=== PATIENT | male | born 1955 | race Caucasian/White ===

== ENCOUNTER 2023-10-04 05:04 | Observation (INO) ==
--- NOTE | 2023-09-02 14:27 | PAT Medication Instructions ---
Medication Instructions Date of Service September 02, 2023 Home Medications Multivitamins/Minerals (Mvi With Minerals) 1 tab PO DAILY acetaminophen 500 mg tablet 500 mg PO QID PRN Pain aspirin 81 mg capsule 81 mg PO Q2D atorvastatin 40 mg tablet 40 mg PO QAM ezetimibe 10 mg tablet 10 mg PO QAM fluticasone propionate 50 mcg/actuation nasal spray,suspension 1 spray intranasal DAILY losartan 25 mg tablet 25 mg PO HS ASK your prescriber and surgeon aspirin 81 mg capsule 81 mg PO Q2D DO NOT take the morning of surgery Multivitamins/Minerals (Mvi With Minerals) 1 tab PO DAILY Take morning of surgery With a small sip of water, OTHERWISE NOTHING TO EAT OR DRINK AFTER MIDNIGHT: acetaminophen 500 mg tablet 500 mg PO QID PRN Pain (if needed) atorvastatin 40 mg tablet 40 mg PO QAM ezetimibe 10 mg tablet 10 mg PO QAM fluticasone propionate 50 mcg/actuation nasal spray,suspension 1 spray intr anasal DAILY Take evening before surgery acetaminophen 500 mg tablet 500 mg PO QID PRN Pain (if needed) losartan 25 mg tablet 25 mg PO HS Other Notes If you have any questions please call us at [phone] or [phone] or [phone] or [phone]
--- NOTE | 2023-09-09 08:44 | Anesthesiology Consultation ---
Date of Service September 09, 2023 Assessment & Plan (1) Encounter for pre-operative examination: - Infectious disease screening: Per assessment on 09/09/23: No known recent infectious disease contacts or current infectious disease symptoms. - Outpatient joint assessment: Pt currently scheduled for inpatient pathway. If surgeon requests review for outpatient joint pathway, patient is an acceptable candidate for outpatient joint program from anesthesia standpoint pending surgeon's office assessment that patient is motivated, has good support and completes [facility] Program preop requirements. - Cardiology visit (08/30/23): "Has chronic hip pain. Scheduled for left hip total replacement on 10/04/23 at [facility] with Dr. Sanders. No prior complications with anesthesia.. cholesterol well controlled- continue atorvastatin 40 mg daily, zetia 10 mg daily.. blood pressure mildly elevated on exam today, continue to monitor- continue losartan 25 mg daily.. borderline enlarged ascending aorta and aortic root on echo from 04/2022.. due to upcoming surgery, will repeat echo prior to surgery to assess size of ascending aorta.. Follow up 1 year or sooner if symptoms worsen/fail to improve." - Patient acceptable risk for surgery pending cardiology-ordered preop Echo (09/17, [facility]). Chart Review Chart Review: Patient seen in Pre Admission Testing Teaching & Discussion Pre-Anesthesia Teaching/Discussion Notes: Instructed NPO after midnight before surgery,except medications with 15 cc of water. Medication instructions provided according to the PAT guidelines. History Surgery Operation Date: 10/04/23 09:00 Proposed Procedures p Left Anterior Total Hip Arthroplasty - Helio Sanders DO Height/Weight Height: 5 ft 9 in Weight: 101.3 kg Allergies Allergy/AdvReac Type Severity Reaction Status Date / Time diphenhydramine Allergy Unknown throat Verified 08/23/23 13:20 swelling Medications Home Medications Medication Instructions Recorded Confirmed Last Taken Multivitamins/Minerals (Mvi With 1 tab PO DAILY #0 tabs 06/14/14 08/23/23 Unknown Minerals) acetaminophen 500 mg tablet 500 mg PO QID PRN Pain 08/23/23 08/23/23 Unknown aspirin 81 mg capsule 81 mg PO Q2D 08/23/23 08/23/23 Unknown atorvastatin 40 mg tablet 40 mg PO DAILY 08/23/23 09/09/23 Unknown ezetimibe 10 mg tablet 10 mg PO DAILY 08/23/23 09/09/23 Unknown fluticasone propionate 50 1 spray intranasal DAILY 08/23/23 08/23/23 Unknown mcg/actuation nasal spray,suspension losartan 25 mg tablet 25 mg PO HS 08/23/23 08/23/23 Unknown Past Medical History Medical History Ascending aorta enlargement [facility] cardio 08/30/23, "borderline enlarged ascending aorta and aortic root on echo from 04/2022.. due to upcoming surgery, will repeat echo prior to surgery to assess size of ascending aorta" > Echo scheduled 09/17 ([facility]) CKD (chronic kidney disease) "CKD with single kidney s/p kidney donation" per [facility] records Degenerative joint disease of left hip H/O kidney donation 2009 HTN (hypertension) Hyperlipidemia Exercise / Class Metabolic Activity II 4-5 Yardwork/Stairs/Walk up hill Past Surgical History Surgical History History of lumbar surgery L5 History of nephrectomy, unilateral (03/2009) kidney donor (left) Hx of colonoscopy Past Anesthesia History No Hx of Anesthesia Complications and No Family Hx of Anesthesia Complications History of PONV No Hx of PONV and No Hx of Motion Sickness Social History Smoking Status: Never smoker Do You Dip or Chew Tobacco: No Hx Alcohol Use: No Hx Substance Use: No substance use type: does not use Review of Systems Patient denies chest pain, shortness of breath, dyspnea on exertion, fever, chills, cough, wheezing, palpitations. Physical Exam Vital Signs BP 147/82 P 61 SP02 96%RA RESP 16 Physical Full cervical extension range of motion. Full TMJ range of motion. TMD > 3.5 finger breaths Mallampati Score 3 Dentition: upper/lower partials Lungs: clear throughout to auscultation Cardiac: regular rate and rhythm, no murmurs noted Spine: normal Carotid arteries: negative bruit Extremities: no LE edema Lab Results Anesthesia Preop Results Results Anesthesia Widget: WBC 8.63 K/ul (4.8-10.8) 09/09/23 Hgb 15.9 g/dl (14.0-18.0) 09/09/23 Hct 47.6 % (42.0-52.0) 09/09/23 Plt 273 K/uL (130-400) 09/09/23 Na 140 mmol/L (136-145) 09/09/23 K 4.7 mmol/L (3.5-5.1) 09/09/23 Cl 106 mmol/L (98-107) 09/09/23 CO2 29 mmol/L (21-32) 09/09/23 BUN 21 mg/dl (6-23) 09/09/23 Creat 1.27 mg/dl (0.6-1.4) 09/09/23 Glucose Level 101 mg/dl (70-99(Fasting)) H 09/09/23 PT 10.5 Seconds (9.0-12.0) 09/09/23 PTT 25 Seconds (21-31) 09/09/23 INR 1.0 (0.9-1.1) 09/09/23 Blood Type A Positive 09/09/23 Antibody Screen NEGATIVE 09/09/23 Testing Electrocardiogram Date: 08/30/23 Findings: + NSR @ (79) Chest X-Ray Date: 09/09/23 FINDINGS: Lung volumes are normal. Lungs are clear. There is no pneumothorax or pleural effusion. Cardiac size is normal. Mediastinal contours are normal. There is no evidence for pulmonary edema. IMPRESSION: No acute cardiopulmonary findings.
--- NOTE | 2023-10-03 12:28 | History & Physical Report ---
Date of Service October 03, 2023 Assessment & Plan (1) Degenerative joint disease of left hip: We will proceed with a left anterior total of arthroplasty. Postoperatively he will be started on aspirin for DVT prophylaxis and kept overnight in the hospital for postop medical management. He does not plan to do physical therapy upon discharge. History of Present Illness Chief Complaint: Osteoarthritis of the left hip. Primary Care Provider: Edmund Theodore MD Edmund is a pleasant 67-year-old male who has been dealing with chronic increasing left hip and groin pain. 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 He does a lot of powerlifting. Previous x-rays have shown advanced arthritis of his hip. He has been trying to treat this conservatively. Unfortunately, he is still really struggling with the hip. After failing conservative treatment, he has elected to proceed with a left anterior total of arthroplasty. Allergies Allergy/AdvReac Type Severity Reaction Status Date / Time diphenhydramine Allergy Unknown throat Verified 08/23/23 13:20 swelling Home Medications Medication Instructions Recorded Confirmed Type Multivitamins/Minerals (Mvi With 1 tab PO DAILY #0 tabs 06/14/14 08/23/23 History Minerals) acetaminophen 500 mg tablet 500 mg PO QID PRN Pain 08/23/23 08/23/23 History aspirin 81 mg capsule 81 mg PO Q2D 08/23/23 08/23/23 History atorvastatin 40 mg tablet 40 mg PO DAILY 08/23/23 09/09/23 History ezetimibe 10 mg tablet 10 mg PO DAILY 08/23/23 09/09/23 History fluticasone propionate 50 1 spray intranasal DAILY 08/23/23 08/23/23 History mcg/actuation nasal spray,suspension losartan 25 mg tablet 25 mg PO HS 08/23/23 08/23/23 History Past Med/Surg History Problem List Encounter for pre-operative examination Medical History Ascending aorta enlargement [facility] cardio 08/30/23, "borderline enlarged ascending aorta and aortic root on echo from 04/2022.. due to upcoming surgery, will repeat echo prior to surgery to assess size of ascending aorta" > Echo scheduled 09/17 ([facility]) CKD (chronic kidney disease) "CKD with single kidney s/p kidney donation" per [facility] records H/O kidney donation 2009 Degenerative joint disease of left hip Hyperlipidemia HTN (hypertension) Surgical History History of nephrectomy, unilateral (03/2009) kidney donor (left) Hx of colonoscopy History of lumbar surgery L5 "artificial disc" Social History Smoking Status: Never smoker Second Hand Exposure: No; Do You Dip or Chew Tobacco: No; Tobacco Cessation Education Requested by Patient: No Hx Alcohol Use: No Hx Substance Use: No Preferred Language: Maori Communication Ability: Effective Concrete Paving Supervisor Required: No Beliefs That Will Affect Care: None Current Living Situation: Alone Other Information That Helps Us Care for You: No Feels Safe at Home: Yes Safety Concerns: Feels Safe At This Time Assistive Devices: Denture - Upper, Denture - Lower and Glasses Review of Systems All systems reviewed & are unremarkable except as noted in HPI & below. Physical Exam Physical examination left hip shows decreased range of motion with pain with forced internal and external rotation.. Constitutional WD/WN, vitals as above Eyes PERRL, conjunctivae normal, anicteric sclerae ENMT external ear and nose normal, oropharynx normal Neck trachea midline, no thyromegaly Respiratory normal respiratory effort Cardiovascular RRR, no murmur, no edema Gastrointestinal (Abdomen) normal bowel sounds, soft, nontender, no hepatosplenomegaly Psychiatric A+Ox3, euthymic affect Results & Data Results & Data Laboratory Results . Diagnostic Findings X-rays of the left hip and pelvis show advanced osteoarthritis with joint space narrowing, osteophyte formation, and [id number] articulation. PG Care Time/CCT Total # of Minutes Spent Total Time Spent with Patient: Total time spent is greater than 50% in coordination of care (as documented) at patient's floor/unit and/or counseling patient: Coding Level of Care Code None Diagnoses Degenerative joint disease of left hip M16.12
--- OUTSIDE RECORDS SUMMARY | 2023-10-04 05:10 | External Medical Summary | Summary of Care ---
Author Name Unknown Organization [facility] Address [address] [facility] [place] [address] Phone [phone] Care Team Providers Care Monument Erector Name Role Phone Edmund Theodore MD Primary Care Provider + Reason for Visit * Reason Onset Date Comments Test Results 09/23/2023 Encounter Details Date Type Department Care Team (Late st Contact Info) Description 09/23/2023 Telephone Elisabeth Zepeda [address] [place] [address] Nuria Tolliver PA-C [address] [facility] [place] [address] Test Results Allergies Active Allergy Reactions Criticality Noted Date Comments Diphenhydramine Hcl Edema airway High 08/01/2012 documented as of this encounter (statuses as of 09/23/2023) Medications Medication Sig Dispensed Refills Start Date End Date Status MULTI-VITAMIN DAILY PO TABS 1 tablet daily Active Fluticasone Propionate 50 MCG/ACT Nasal Suspension (Flonase) Administer 2 Sprays into nostril in the morning. Active Acetaminophen 500 MG Oral Tablet (Tylenol) Take 2 Tablets by mouth every 6 hours as needed (pain or fever). Active Aspirin 81 MG Oral Tablet Delayed Release Take 1 Tablet by mouth daily as needed (pain). Active Ezetimibe 10 MG Oral Tablet (Zetia)Indications:Mi xed hyperlipidemia TAKE ONE TABLET BY MOUTH EVERY MORNING 30 Tablet 11 03/25/2023 Active Losartan Potassium 25 MG Oral Tablet (Cozaar)Indications:H TN, goal below 140/90 TAKE 1 TABLET BY MOUTH EVERY DAY 90 Tablet 3 05/20/2023 Active Atorvastatin Calcium 40 MG Oral Tablet (Lipitor)Indications: Hyperlipidemia TAKE 1 TABLET BY MOUTH EVERY DAY 90 Tablet 3 05/20/2023 Active documented as of this encounter (statuses as of 09/23/2023) Active Problems Problem Noted Date Diagnosed Date Chronic kidney disease, stage 3a 01/02/2021 Overview: Per CKD protocol HTN, goal below 140/90 11/08/2020 Prediabetes 09/14/2020 Lipoma of torso 05/13/2017 History of nonmelanoma skin 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/06/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: pigmented 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 back 11/11 History of tobacco use 09/12/2012 Mixed hyperlipidemia 03/13/2010 documented as of this encounter (statuses as of 09/23/2023) Resolved Problems Problem Noted Date Diagnosed Date Resolved Date Tobacco use disorder 06/12/2010 013 Kidney disease, chronic, sta ge III (GFR 30-59 ml/min) 03/28/2010 01/05/2021 Overview: Requests to see [facility] documented as of this encounter (statuses as of 09/23/2023) Immunizations Name Administration Dates Next Due Covid-19 Ad26, Single Dose (Araseli/J&J) 021 TDAP (age 10 and older)(Boostrix) 05/13/2017 TDAP, Age 7 and older, IM (Adacel) 10/10/2004 Zoster Vaccine Recombinant (Shingrix) 11/08/2020 ,09/13/2020 11/14/2020 documented as of this encounter Social History Tobacco Use Types Packs/Day Years Used Date Smoking Tobacco: Never Smokeless Tobacco: Former Snuff, Chew Quit: 06/25/2010 Alcohol Use Standard Drinks/Week Comments No 0 (1 standard drink = 0.6 oz pur e alcohol) PHQ-2 Answer Date Recorded PHQ Adult Total Score 0 03/26/2022 Hunger Vital Sign Answer Date Recorded Within the past 12 months, y ou worried that your food would run out before you got the money to buy more. Never true 03/26/19 23 Within the past 12 months, t he food you bought just didn't last and you didn't have money to get more. Never true 03/26/2022 Sex and Gender Information Value Date Recorded Sex Assigned at Male 05/14/2018 8:04 AM EDT Gender Identity Male 05/14/2018 8:04 AM EDT Sexual Orientation Straight 05/14/2018 8: 04 AM EDT Job Start Date Occupation Industry Not on file Not on file Not on file documented as of this encounter Miscellaneous Notes * Telephone Encounter - Veronica Steiner CMA - 09/23/2023 2:18 PM EDT Letter mailed. * Telephone Encounter - Veronica Steiner CMA - 09/23/2023 2:18 PM EDT ----- Message from Nuria Tolliver sent at 09/20/2023 2:54 PM EDT ----- No significant change compared to previous echo. Keep appt as scheduled. documented in this encounter Plan of Treatment Upcoming Encounters Date Type Department Care Team (Late st Contact Info) Description 10/30/2023 10:00 AM EDT Office Visit General Internal Medicine [facility] [address] [facility] [address] [place] [address] Edmund Theodore MD [address] [facility] [place] [address] 09/04/2024 8:30 AM EDT Office Visit Cardiology, [facility] [address] [place] [address] Nuria Tolliver PA-C [address] [place] [phone] Scheduled Procedures Name Priority Associated Diagnoses Date/Ti me COLONOSCOPY FLEXIBLE PROXIMA L DIAGNOSTIC Recall Special screening for malignant neoplasms, colon Health Maintenance Due Date Last Done Comments Cologuard 2001 Fecal Occult Blood Test 2001 Sigmoidoscopy 2001 Pneumococcal Vaccine: 65+ Years (1 of 1 - PCV) 2021 COVID-19 Vaccine (2 - 2022- season) 2022 05/08/2020 Albumin/Creatinine Ratio 03/26/2023 023, 09/13/2020, 05/14/2018, Additional history exists Depression Screening 03/26/2023 03/26/2022 GFR 10/22/2023 04/23/2023, 08/0 04/2022, 03/26/2022, Additional history exists Influenza Vaccine (FLU shot) (#1) 2023 CKD HGB USE SMARTSET 65865 04/23/202404/23, 04/23/2023, 09/27/2022, Additional history exists CKD PHOS USE SMARTSET 01413 04/23/2024/2 08/2023, 03/26/2022, 09/13/2020, Additional history exists HbA1c 04/23/2024 04/23/2023, 08/0 04/2022, 03/26/2022, Additional history exists DTaP,Tdap,and Td Vaccines (3 - Td or Tdap) 05/14/2027 05/13/2017, 10/10/2004 Lipid Panel 04/23/2028 04/23/2023, 02/27, 08/09/2021, Additional history exists Colonoscopy 09/05/2028 09/05/2018, 09/05/2018 Colorectal Cancer Screening 09/05/2028 Zoster Vaccines Completed 11/08/2020, 09/13/2020 HPV (Gardasil) Vaccine Aged Out No lo nger eligible based on patient's age to complete this topic Hepatitis B Vaccine Aged Out No longe r eligible based on patient's age to complete this topic MENINGOCOCCAL (MENACTRA/MENVEO) Aged Out No longer eligible based on patient's age to complete this topic documented as of this encounter Medical Devices Not on filedocumented as of this encounter Care Teams Monument Erector Relationship Specialty Start Date End Date Edmund Theodore MD [address] [place] [address] PCP - General Internal Medicine 03/13/10 documented as of this encounter
[2023-10-04] MEDS: LR 500ML BOLUS, THEN 15ML/HR IV SCH (05:34)
[2023-10-04] MEDS: dexAMETHasone**PF** 10 MG/ML VIAL IV SCH (05:35)
[2023-10-04] MEDS: ACETAMINOPHEN 500 MG TAB PO SCH ×2 (05:48→14:07)
[2023-10-04] MEDS: FAMOTIDINE 20 MG TAB PO SCH (05:48)
[2023-10-04] MEDS: GABAPENTIN 300 MG CAP PO SCH (05:48)
--- NOTE | 2023-10-04 06:17 | History & Physical Bridge Note ---
Date of Service October 04, 2023 History & Physical Bridge Note I have examined the patient, reviewed the History & Physical and in the interval since the performance of the History & Physical I have noted the following changes of clinical significance: no changes noted
[2023-10-04] MEDS ORDERED: BUPIVACAINE 0.5 % 5 MG/1 ML PF 10ML VIAL ONE (06:18)
[2023-10-04] MEDS ORDERED: ePHEDrine sulfate 50 MG/ML AMP IV PRN (06:35)
[2023-10-04] MEDS ORDERED: ONDANSETRON INJ 2 MG/ML 2 ML VIAL IV PRN ×2 (06:35→10:24)
[2023-10-04] MEDS ORDERED: fentaNYL citrate PF 100 MCG/2 ML VIAL IV PRN (06:35)
[2023-10-04] MEDS ORDERED: ATROPINE SULFATE 0.1 MG/ML 10ML SYR IV PRN (06:35)
[2023-10-04] MEDS ORDERED: fentaNYL citrate PF 100 MCG/2 ML VIAL ONE ×2 (06:42→07:36)
[2023-10-04] MEDS ORDERED: MIDAZOLAM HCL 1 MG/ML 2ML VIAL ONE (06:42)
[2023-10-04] MEDS: TRANEXAMIC ACID 1,000 MG **IV Pre-op IV SCH (06:46)
[2023-10-04] MEDS: ceFAZolin 2000MG 2,000 MG/15 ML SYR IV SCH ×2 (06:58→14:52)
[2023-10-04] MEDS ORDERED: HYDROmorphone INJ 2 MG/ML SYR/VIAL ONE (07:14)
[2023-10-04] MEDS ORDERED: ONDANSETRON INJ 2 MG/ML 2 ML VIAL ONE (07:24)
[2023-10-04] MEDS: ORTHO JOINT ANESTHETIC ONE (07:24)
[2023-10-04] MEDS ORDERED: PROPOFOL IV EMULSION 10 MG/ML 20 ML VIAL IV ONE (07:24)
[2023-10-04] MEDS: ROPIV 0.5% 246mg, Ketorolac 30mg, EPINEPHrine 0.5mg in NSS INFIL SCH (07:40)
[2023-10-04] MEDS ORDERED: ePHEDrine sulfate 50 MG/ML AMP ONE (07:46)
--- NOTE | 2023-10-04 08:12 | Operative Report ---
PG Post Operative Report Pre & Post Diagnosis Operation Date: 10/04/23 07:00 Pre-Op Diagnosis: Left Hip Degenerative Joint Disease Post-Op Diagnosis: Left Hip Degenerative Joint Disease I identified the patient and participated in the time-out.: Yes Procedure Operation Date: 10/04/23 07:00 Actual Procedures p Left Anterior Total Hip Arthroplasty(Left) - Helio Sanders DO Surgeon Helio Sanders DO Structural Manager Helio Steen PA-C Estimated Blood Loss 350 Findings Consistent with Post-Op Diagnosis Specimens Left femoral head Description of Procedure Implants used I used a ZimmerBiomet total hip arthroplasty system with a size 6 standard offset Avenir Complete stem, a 52 mm G7 cup with a 25mm screw, an E1 polyethylen e liner, a 36 mm ceramic head with a +3.5 neck. Vikram arrived at the hospital for the above procedure. He was seen in the preoperative holding area and the operative extremity was identified and signed. He was given a spinal anesthetic, a preoperative antibiotic, and TXA. He was then taken back to the operating room and laid on the table in the supine position. He was given basic sedation. The operative leg was secured to a Puristst leg positioner. The hip was then prepped and draped in sterile fashion. A timeout was done and the patient and the operative extremity was properly identified. An anterior approach was used. Dissection was taken down through the fascia and the tensor muscle belly was retracted laterally and the rectus was retracted medially. The circumflex vessels were identified and ligated. The capsule was then incised and tagged for later repair. The femoral neck was then cut and the femoral head was removed. The acetabulum was exposed. Time was spent doing a complete circumferential labral release. Sequential reaming of the acetabulum up to a size 51 reamer was done. Final reamings were done under fluoroscopy to ensure appropriate version. A Biomet 52 mm G7 cup was then impacted into place. A single 25 mm screw was placed. The E1 polyethylene liner was then snapped into place. Surrounding soft tissues were then injected with 100 cc of an orthopedic pain control cocktail. The proximal femur was then exposed. Sequential broaching up to a size 6 broach was done. Off that broach a size 36 head with a 3.5 neck was trialed. The hip was reduced and fluoroscopic images showed anatomic alignment of the implants in acceptable length. The broach was removed. The final size 6 standard offset Avenir Complete stem was then impacted into place. A ceramic 36 mm head with a +3.5 neck was then impacted onto the stem and the hip was reduced. Final fluoroscopic images showed anatomic alignment of the hip. The capsule was then closed with #1 Vicryl suture. A dilute betadyne lavage was then done for 3 minutes. The joint was then irrigated with normal saline solution. The fascia was closed with #1 PDS suture. Skin was closed with 2-0 Vicryl, juan, and a Silverlon dressing. He was then transferred to a hospital bed and taken to the post anesthesia care unit in stable condition. He tolerated the procedure well. Helio Steen PA-C, was present for the entire procedure. He was critical for patient positioning, prepping, draping, retraction exposure, wound closure and application of sterile dressing. I attest to the content of the Intraoperative Record and any orders documented therein. Any exceptions are noted below.
[2023-10-04] MEDS: TRANEXAMIC ACID 1,000 MG **IV Intra-op IV SCH (08:13)
--- NOTE | 2023-10-04 08:32 | Fluoroscopy Report ---
INTRAOPERATIVE RADIOGRAPH CLINICAL HISTORY: Left hip arthroplasty. Fluoro time: 14 seconds Ka,r: 2.89 mGy FINDINGS: A single spot fluoroscopic view of the left hip is presented. A bipolar left hip arthroplas ty is in near anatomic alignment. A single cortical lag screw transfixes the acetabular cup. There is no evidence of acute fracture on this fluoroscopic image. IMPRESSION: Intraoperative image from a left hip arthroplasty procedure as above. Electronically signed by: Mil Garnica M.D. 10/04/2023 8:31 AM
[2023-10-04 09:36] VITALS: RESP 16
[2023-10-04] MEDS ORDERED: HYDROmorphone INJ 0.5 MG/0.5 ML SYR IV PRN (10:24)
[2023-10-04] MEDS ORDERED: MULTIVITAMIN TAB PO SCH (10:24)
[2023-10-04] MEDS ORDERED: NALOXONE HCL 0.4 MG/1 ML VIAL/CARP IV PRN (10:24)
[2023-10-04] MEDS ORDERED: oxyCODONE HCL IR 5 MG TAB (IMMEDIATE RELEASE) PO PRN (10:24)
[2023-10-04] MEDS ORDERED: bisacodyL 10 MG SUPP PR PRN (10:24)
[2023-10-04] MEDS ORDERED: METOCLOPRAMIDE HCL INJ 5 MG/ML 2 ML VIAL IV PRN (10:24)
[2023-10-04] MEDS ORDERED: MAGNESIUM HYDROXIDE SUSP 30 ML UDC PO PRN (10:24)
[2023-10-04] MEDS: LR 60ML/HR IV SCH (10:39)
--- NOTE | 2023-10-04 11:12 | XRay Report ---
XR hip 1V LT w pelvis CLINICAL HISTORY: Postoperative evaluation. COMPARISON: Left hip radiographs July 17, 2023. FINDINGS: Alignment of the total left hip arthroplasty is anatomic. There is no periprosthetic fract ure or unexpected radiopaque foreign body. There is an acetabular screw. There are skin juan. Post operative findings within the spine are incidentally noted. IMPRESSION: Expected findings following total left hip arthroplasty. ACT 112: Negative or not required by law. Electronically signed by: Indio Lopez M.D. 10/04/2023 11:11 AM
[2023-10-04] MEDS: EZETIMIBE 10 MG TAB PO SCH (11:19)
[2023-10-04] MEDS: FLUTICASONE PROPIONATE NA SPR 16 GM BTL SCH (11:19)
[2023-10-04] MEDS: ASPIRIN 81 MG ECTAB PO SCH (11:19)
[2023-10-04] MEDS: DOCUSATE SODIUM 100 MG CAP PO SCH (11:19)
[2023-10-04] MEDS: ATORVASTATIN 40 MG TAB PO SCH (11:19)
[2023-10-04] MEDS: KETOROLAC TROMETHAMINE 15 MG/ML VIAL IV SCH (11:20)
--- NOTE | 2023-10-04 11:41 | Anesthesiology Progress Note ---
Date of Service October 04, 2023 Anesthesia Post Procedure Vital Signs Vital Signs: Temp Pulse Pulse Pulse Resp BP Pulse Ox 10/04/23 11:00 66 16 128/82 95 10/04/23 10:26 62 16 126/77 93 10/04/23 10:00 10/04/23 10:00 36.3 C L 69 18 131/80 98 10/04/23 09:35 77 16 132/75 95 10/04/23 09:25 71 12 123/81 96 10/04/23 09:15 36.2 C L 79 16 119/74 96 10/04/23 09:05 77 15 134/78 95 10/04/23 08:55 81 12 137/81 95 10/04/23 08:45 92 H 15 134/90 97 10/04/23 08:38 36.2 C L 94 H 16 142/92 H 95 10/04/23 05:37 36.7 C 64 18 159/102 H 95 O2 Del Method O2 Flow Rate 10/04/23 11:00 Nasal Cannula 3 10/04/23 10:26 Nasal Cannula 3 10/04/23 10:00 Nasal Cannula 3 10/04/23 10:00 Nasal Cannula 3 10/04/23 09:35 Nasal Cannula 3 10/04/23 09:25 Nasal Cannula 3 10/04/23 09:15 Nasal Cannula 3 10/04/23 09:05 Nasal Cannula 3 10/04/23 08:55 Nasal Cannula 3 10/04/23 08:45 Oxymask 8 10/04/23 08:38 Oxymask 8 10/04/23 05:37 Room Air Pain Intensity Left Hip: Pain Intensity: 7 Transfer of Care Handoff Completed per policy Notes Mental Status: alert / awake / arousable Patient Amnestic to Procedure: Yes Nausea / Vomiting: adequately controlled Pain: adequately controlled Airway Patency, RR, SpO2: stable & adequate BP & HR: stable & adequate Hydration State: stable & adequate Anesthetic Complications: no major complications apparent and Pt Satisfied with anesthetic care
[2023-10-04] MEDS: SODIUM CHLORIDE 0.9% 1,000 ML IV SCH (17:25)
[2023-10-04] MEDS: LOSARTAN POTASSIUM 25 MG TAB PO SCH (20:47)
[2023-10-04] MEDS: SENNA 8.6 MG TAB PO SCH (20:48)
[2023-10-05 07:45] VITALS: BP 92/61; PULSE 86; TEMP 97.7; O2SAT 99
[2023-10-05] MEDS: dexAMETHasone 4 MG TAB PO SCH (08:05)
[2023-10-05] MEDS: CEROVITE ADV FORMULA TAB PO SCH (08:06)
--- NOTE | 2023-10-05 09:04 | Orthopedic Progress Note ---
Date of Service October 05, 2023 Assessment & Plan (1) Status post left hip replacement: No issues on postop day 1 from his left anterior approach total hip arthroplasty with Dr. Sanders. Continue the total joint pathway. PT and OT evaluations before discharge home today. Subjective Reports no issues this morning. Pain is well-controlled. He has been ambulating in his room. Sitting up and waiting for PT and OT. Review of Systems All systems reviewed & are unremarkable except as noted in HPI & below. Physical Exam Left hip: Dressing is clean and dry and intact. Positive DF/PF/EHL. DNVI. Able to form a straight leg raise. Constitutional WD/WN, vitals as above no acute distress and not intoxicated appearing Respiratory normal respiratory effort; no labored breathing Cardiovascular Extremities: normal capillary refill Results & Data Results & Data Laboratory Results . Diagnostic Findings . PG Care Time/CCT Total # of Minutes Spent Total Time Spent with Patient: Total time spent is greater than 50% in coordination of care (as documented) at patient's floor/unit and/or counseling patient: Coding Level of Care Code 88682 Post Operative Follow-Up Diagnoses Status post left hip replacement Z96.642
== END 2023-10-05 10:58 | disposition home or self-care (01) ==
LOC: 3N 05:04 → ASU 05:04